=== PATIENT | female | born 1930 | race Caucasian/White ===

== ENCOUNTER 2019-03-16 13:40 | Inpatient (IN) ==
--- NOTE | 2019-03-16 15:02 | XRay Report ---
INDICATION: Fall. Chest pain. TECHNIQUE: AP chest x-ray,portable semiupright COMPARISON: Chest CT scan dated 06/06/[address] [facility] FINDINGS:Elevated right hemidiaphragm is unchanged. No focal pulmonary parenchymal infiltrate. No pulmonary contusion. There is no pneumothorax or hemopneumothorax. No detectable rib fracture. Heart size and mediastinum are negative. Clavicles and scapula are negative IMPRESSION: No acute abnormality Interpreted and Authenticated by: Mehdi Jones 03/16/19
[2019-03-16] MEDS ORDERED: HYDROmorphone 2 MG/ML VIAL IV PRN ×3 (15:12→17:09)
[2019-03-16] MEDS ORDERED: ONDANSETRON 4 MG/2 ML VIAL IV ONE ×2 (15:12→16:20)
--- NOTE | 2019-03-16 15:15 | Emergency Department Note ---
Lower Extremity Injury HPI - General Chief Complaint: Extremity Injury, Lower Stated Complaint: fall Time Seen by Provider: 03/16/19 14:20 Source: patient, EMS Mode of arrival: EMS Limitations: no limitations - History of Present Illness HPI Narrative: 88-year-old female presents with right hip pain. Onset yesterday. She was out sweeping her driveway area where there are lots of little rocks and she kind of stepped on one and fell backwards. Was having right hip pain. Was seen at [facility] up in [place]. They did a CAT scan and found she had a right hip fracture. They did contact Dr. Cobb who wanted her sent to our ER. She is having some pain right now and would like something for pain. Has not had something for several hours she believes. Her pain is constant in the right hip and radiates down the right leg. Worse with any type of movement. No prior injury to this hip. Did not hit her head. No loss of consciousness. No head, neck, or back pain. Dr. Cobb is aware that she is here and would like some preop labs done and asked to get her ready for surgery possibly tonight. - Related Data Home Medications Medication Instructions Recorded Confirmed Aspirin [Rosa Chewable Aspirin] 81 mg PO DAILY 03/16/19 03/16/19 Folic Acid 1 mg PO DAILY 03/16/19 03/16/19 Levothyroxine Sodium [Synthroid] 75 mcg PO DAILY 03/16/19 03/16/19 Losartan [Cozaar] 100 mg PO DAILY 03/16/19 03/16/19 Melatonin [Melatonin 3Mg Tablet] 1 - 2 tab PO HS 03/16/19 03/16/19 Nystatin 15 gm TP TID 03/16/19 03/16/19 Sertraline HCl [Zoloft] 50 mg PO HS 03/16/19 03/16/19 amLODIPine [Norvasc] 5 mg PO DAILY 03/16/19 03/16/19 metFORMIN [Glucophage] 500 mg PO BID 03/16/19 03/16/19 Previous Rx's Medication Instructions Recorded Aspirin [Ecotrin] 325 mg PO BID #60 tab.ec 03/17/19 Docusate Sodium [Colace] 100 mg PO BID #60 cap 03/17/19 HYDROcodone/APAP 5/325MG [[place] 1 - 2 tab PO Q4HP PRN #75 tab 03/17/19 5-325Mg] Allergies Allergy/AdvReac Type Severity Reaction Status Date / Time No Known Drug Allergies Allergy Verified 03/16/19 13:45 Review of Systems All systems ED: reviewed and negative except as stated. Past Medical History - Social History smoking status: Former smoker Physical Exam Limitations: no limitations General appearance: alert Head: atraumatic, normocephalic, normal inspection Eye: Present: normal appearance. Absent: conjunctival injection ENT: mucous membranes moist Chest: Present: symmetric chest wall rise Respiratory: Present: normal lung sounds bilaterally. Absent: respiratory distress, rales/crackles, accessory muscle use Cardiovascular: Present: regular rate, normal heart sounds Extremities: Present: normal capillary refill. Absent: normal inspection (Right hip with diffuse tenderness. No shortening or rotation. Pedal pulses strong and equal. No lower extremity edema. Sensation intact) Back: Present: normal inspection. Absent: tenderness Neurological: Present: alert, oriented X3. Absent: motor sensory deficit Psychiatric: Present: normal affect, normal mood Skin: Present: warm, dry, intact, normal color Course Vital Signs Temperature 98.7 F 03/16/19 13:42 Pulse Rate 65 03/16/19 13:42 Respiratory Rate 18 03/16/19 13:42 Blood Pressure 160/63 03/16/19 13:42 Pulse Oximetry (%) 95 03/16/19 13:42 Temperature 97.3 F 03/17/19 07:18 Pulse Rate 73 03/17/19 09:00 Respiratory Rate 16 03/17/19 07:18 Blood Pressure 128/61 03/17/19 07:18 Pulse Oximetry (%) 97 03/17/19 08:00 Extremity Injury, Lower - Lab Data Lab results reviewed: Yes I reviewed the patient's lab results. Result diagrams: 03/17/19 04:50 03/16/19 14:57 Lab Results 03/16/19 03/16/19 03/16/19 Range/Units 14:45 14:57 14:57 WBC 9.6 (4.5-11.0) K/mcL RBC 4.01 (4.00-5.20) M/mcL Hgb 11.7 L (12.0-15.0) g/dL Hct 35.7 L (36.0-48.0) % MCV 89.1 (80.0-100.0) fL MCH 29.2 (26.0-34.0) pg MCHC 32.7 (31.0-36.0) g/dL RDW 13.8 (11.5-14.5) % Plt Count 181 (140-440) K/mcL MPV 8.7 (7.4-10.4) fL Gran % 74.1 (38.0-78.0) % Lymph % (Auto) 13.8 L (15.5-49.0) % [place] % (Auto) 9.7 (1.0-12.0) % Eos % (Auto) 2.0 (0.0-7.0) % Baso % (Auto) 0.4 (0.0-2.0) % Gran # 7.1 (1.8-8.0) K/mcL Lymph # (Auto) 1.3 L (1.5-4.8) K/mcL [place] # (Auto) 0.9 (0.1-0.9) K/mcL Eos # (Auto) 0.2 (0.0-0.7) K/mcL Baso # (Auto) 0 (0.0-0.3) K/mcL PT 13.7 (11.9-14.5) sec INR 1.0 (0.9-1.1) Sodium (133-145) mmol/L Potassium (3.3-5.1) mmol/L Chloride (96-108) mmol/L Carbon Dioxide (22-30) mmol/L Anion Gap (8-16) BUN (8-23) mg/dl Creatinine (0.6-1.1) mg/dl GFR Calculation Glucose (70-105) mg/dL Calcium (8.6-10.4) mg/dl Total Bilirubin (0.0-1.0) mg/dL AST (0-37) U/l ALT (0-40) U/l Alkaline Phosphatase (39-117) U/L Total Protein (5.9-8.4) gm/dL Albumin (3.2-5.2) gm/dL Globulin (2.2-3.7) gm/dL Albumin/Globulin Ratio (1.0-2.3) Urine Color Yellow Urine Appearance Clear Urine pH 6.0 (5.0-9.0) Ur Specific [place] 1.011 (1.000-1.035) Urine Protein 30 A (NEG) mg/dL Urine Glucose (UA) Negative (NEG) mg/dL Urine Ketones Neg (NEG) mg/dL Urine Occult Blood Neg (<0.03) mg/dL Urine Nitrate Neg (NEG) Urine Bilirubin Neg (NEG) mg/dL Urine Urobilinogen Neg (NEG) mg/dL Ur Leukocyte Esterase Neg (NEG) /uL Urine RBC 2 H (0-1) /hpf Urine WBC 1 (0-4) /hpf Ur Squamous Epith Cells 0 (0-4) /hpf Urine Bacteria 0 (0) /hpf Urine Mucus Few (0) /hpf Ur Culture Indicated? No 03/16/19 Range/Units 14:57 WBC (4.5-11.0) K/mcL RBC (4.00-5.20) M/mcL Hgb (12.0-15.0) g/dL Hct (36.0-48.0) % MCV (80.0-100.0) fL MCH (26.0-34.0) pg MCHC (31.0-36.0) g/dL RDW (11.5-14.5) % Plt Count (140-440) K/mcL MPV (7.4-10.4) fL Gran % (38.0-78.0) % Lymph % (Auto) (15.5-49.0) % [place] % (Auto) (1.0-12.0) % Eos % (Auto) (0.0-7.0) % Baso % (Auto) (0.0-2.0) % Gran # (1.8-8.0) K/mcL Lymph # (Auto) (1.5-4.8) K/mcL [place] # (Auto) (0.1-0.9) K/mcL Eos # (Auto) (0.0-0.7) K/mcL Baso # (Auto) (0.0-0.3) K/mcL PT (11.9-14.5) sec INR (0.9-1.1) Sodium 137 (133-145) mmol/L Potassium 3.6 (3.3-5.1) mmol/L Chloride 101 (96-108) mmol/L Carbon Dioxide 24 (22-30) mmol/L Anion Gap 12.0 (8-16) BUN 17 (8-23) mg/dl Creatinine 0.9 (0.6-1.1) mg/dl GFR Calculation 57 Glucose 106 H (70-105) mg/dL Calcium 10.0 (8.6-10.4) mg/dl Total Bilirubin 0.4 (0.0-1.0) mg/dL AST 18 (0-37) U/l ALT 16 (0-40) U/l Alkaline Phosphatase 92 (39-117) U/L Total Protein 6.5 (5.9-8.4) gm/dL Albumin 4.0 (3.2-5.2) gm/dL Globulin 2.5 (2.2-3.7) gm/dL Albumin/Globulin Ratio 1.6 (1.0-2.3) Urine Color Urine Appearance Urine pH (5.0-9.0) Ur Specific [place] (1.000-1.035) Urine Protein (NEG) mg/dL Urine Glucose (UA) (NEG) mg/dL Urine Ketones (NEG) mg/dL Urine Occult Blood (<0.03) mg/dL Urine Nitrate (NEG) Urine Bilirubin (NEG) mg/dL Urine Urobilinogen (NEG) mg/dL Ur Leukocyte Esterase (NEG) /uL Urine RBC (0-1) /hpf Urine WBC (0-4) /hpf Ur Squamous Epith Cells (0-4) /hpf Urine Bacteria (0) /hpf Urine Mucus (0) /hpf Ur Culture Indicated? - Radiology Data Radiology results reviewed: Yes I reviewed the patient's radiology results. Disposition Pt seen by MECHATRONICS ENGINEER/PA only: Yes Clinical Impression: Closed right hip fracture Disposition: Xfer As Inpt ([facility]) Condition: Fair
[2019-03-16] MEDS: LACTATED RINGERS 1,000 ML IV SCH (15:24)
[2019-03-16 15:25] LABS: Basophils # (Auto) 0 K/mcL (0.0-0.3); Basophils % (Auto) 0.4 % (0.0-2.0); Eosinophils # (Auto) 0.2 K/mcL (0.0-0.7); Granulocytes % (Auto) 74.1 % (38.0-78.0); Hematocrit 35.7 % (36.0-48.0); Hemoglobin 11.7 g/dL (12.0-15.0); Lymphocytes # (Auto) 1.3 K/mcL (1.5-4.8); Lymphocytes % (Auto) 13.8 % (15.5-49.0); Mean Cell Volume 89.1 fL (80.0-100.0); Mean Corpuscular HGB Conc 32.7 g/dL (31.0-36.0); Mean Platelet Volume 8.7 fL (7.4-10.4); Monocytes # (Auto) 0.9 K/mcL (0.1-0.9); Monocytes % (Auto) 9.7 % (1.0-12.0); Platelet Count 181 K/mcL (140-440); RBC 4.01 M/mcL (4.00-5.20); Red Cell Distribution Width 13.8 % (11.5-14.5); WBC 9.6 K/mcL (4.5-11.0)
[2019-03-16 15:42] LABS: ALT/SGPT 16 U/l (0-40); AST/SGOT 18 U/l (0-37); Albumin/Globulin Ratio 1.6 (1.0-2.3); Alkaline Phosphatase 92 U/L (39-117); Bilirubin,Total 0.4 mg/dL (0.0-1.0); Blood Urea Nitrogen 17 mg/dl (8-23); Carbon Dioxide 24 mmol/L (22-30); Chloride 101 mmol/L (96-108); Globulin 2.5 gm/dL (2.2-3.7); Glomerular Filtration Rate 57; Glucose 106 mg/dL (70-105); Potassium 3.6 mmol/L (3.3-5.1); Sodium 137 mmol/L (133-145)
[2019-03-16 15:44] LABS: Prothrombin Time 13.7 sec (11.9-14.5)
[2019-03-16 15:46] LABS: Appearance,Urine CLEAR; Bacteria,Urine 0 /hpf (0); Bilirubin,Urine NEG (NEG); Color,Urine YELLOW; Culture Indicated,Urine NO; Glucose,Urine (UA) NEGATIVE (NEG); Ketones,Urine NEG (NEG); Leukocyte Esterase,Urine NEG /uL (NEG); Mucus,Urine FEW /hpf (0); Nitrate,Urine NEG (NEG); Protein,Urine 30 mg/dL (NEG); Specific Gravity,Urine 1.011 (1.000-1.035); Urine Blood NEG mg/dL (<0.03); Urine RBC 2 /hpf (0-1); Urine Squamous Epithelial Cell 0 /hpf (0-4); Urine WBC 1 /hpf (0-4); Urobilinogen,Urine NEG (NEG)
[2019-03-16] MEDS ORDERED: 0.9 % SODIUM CHLORIDE 9 ML, KETOROLAC 30 MG, ROPIVACAINE HCL/PF 49.5 ML, EPINEPHrine 0.... IJ ONE (15:59)
[2019-03-16] MEDS ORDERED: ceFAZolin 2 GM in DEXTROSE 5% IN WATER 50 ML IV SCH (16:00)
--- NOTE | 2019-03-16 16:09 | Consultation ---
DATE OF CONSULTATION: 03/16/2019 BRIEF HISTORY: The patient is an 88-year-old female who fell last night. She was assisted back into the house after sweeping. She was able to get back into the house and had severe pain all night. She did not have much pain relief all night. She was seen in the emergency room in [place] where she was appropriately diagnosed with a right femoral neck or lower intertrochanteric fracture. She has been quite healthy. She does have a that is assisting her. ALLERGIES: No known allergies to drugs or to environmental factors or food. No latex allergies. She does not take spironolactone anymore and Bactrim because of allergies. MEDICATIONS: 1. Folic acid 1 mg p.o. daily. 2. Cozaar 100 mg p.o. q. day. 3. Metformin 500 mg p.o. b.i.d. for type 2 diabetes. 4. Amlodipine 5 mg p.o. q. day. 5. Melatonin 3 mg p.o. at bedtime. 6. Sertraline or Zoloft 50 mg p.o. q. day. 7. Nystatin 100,000 units/mL t.i.d. 8. Aspirin 81 mg p.o. q. daily. 9. Levothyroxine 75 mcg daily. PAST MEDICAL HISTORY: She does have diabetes type 2, mild dementia, anxiety, hypertension, dyslipidemia, hypothyroidism, gout, hypercalcemia, clear-cell carcinoma of the uterus. PAST SURGERIES: Cholecystectomy in 09/23/1989, total abdominal hysterectomy and BSO. REVIEW OF SYSTEMS: Otherwise not contributory. PHYSICAL EXAMINATION: GENERAL: Very pleasant, elderly female, 88 years of age, alert and oriented x3. Mood and affect appropriate. She is well kept and groomed. VITALS: Pulse rate is 66, respiratory rate 16, blood pressure 170/67. She is in no acute distress. HEAD: Normocephalic, atraumatic. EYES: Pupils equal, round and react to light and accommodation bilaterally. Extraocular movements intact bilaterally. Sclerae are white without any blood. MOUTH: She wears dentures. No lesions. NECK: Supple, nontender. No C-spine tenderness. LUNGS: Clear to auscultation bilaterally. CARDIOVASCULAR: Regular rate and rhythm. No murmur, rubs, or gallops. ABDOMEN: Soft, nontender. MUSCULOSKELETAL: She has severe pain with any palpation of the right leg and any touching of the toes. The right leg is shortened with internal rotation. EXTREMITIES: The rotational deformity is noted. NEUROVASCULAR: On sensory exam, the patient has difficulty lifting the right leg or moving it. She can move the toes. SKIN: No open wounds, lacerations or abrasions. There is a little area of ecchymosis around the right arm where she hit the ground. PSYCH: Alert and cooperative. Normal attention span. Normal concentration. Normal affect. IMAGING: X-rays of the lumbar spine and the right hip show a right hip intertrochanteric or low neck fracture without fracture of the spine with arthritis of the left hip. IMPRESSION: Right hip fracture. PLAN: Treatment will be cemented hemiarthroplasty given the severity of the osteopenia and osteoporosis, since there is so much more deficient bone on the right leg compared to the left. The patient does smoke which contributes to this factor. She has agreed to proceed with a cemented hemiarthroplasty, understanding the risks and benefits. Benefits is to get walking sooner and get out of pain. The other is the risk of heart attack, stroke, which are always possible with these kind of big injuries. She has probably lost enough blood that we will have to monitor this well and may have to consult a hospitalist. RBH:nella Job ID: [id number] Doc ID: [id number] Scotty Antonio MD
[2019-03-16] MEDS ORDERED: MEPERIDINE 25 MG/ML SYRINGE IV PRN (16:20)
[2019-03-16] MEDS ORDERED: PROMETHAZINE 25 MG/ML VIAL IV PRN (16:20)
[2019-03-16] MEDS ORDERED: FLUMAZENIL 0.1 MG/ML ML IV PRN (16:20)
[2019-03-16] MEDS ORDERED: ONDANSETRON 4 MG/2 ML VIAL IV PRN ×2 (16:20→17:09)
[2019-03-16] MEDS ORDERED: diphenhydrAMINE 50 MG/ML VIAL IV PRN (16:20)
[2019-03-16] MEDS ORDERED: fentaNYL 100 MCG/2 ML VIAL IV PRN (16:20)
[2019-03-16] MEDS ORDERED: fentaNYL 100 MCG/2 ML VIAL IV ONE (16:20)
[2019-03-16] MEDS ORDERED: PROPOFOL 200 MG/20 ML VIAL IV ONE (16:20)
[2019-03-16] MEDS ORDERED: ePHEDrine 50 MG/ML AMPUL IV ONE (16:20)
[2019-03-16] MEDS ORDERED: ATROPINE SULFATE 0.4 MG/ML VIAL IV PRN (16:20)
[2019-03-16] MEDS ORDERED: NALOXONE HCL 0.4 MG/ML VIAL IV PRN (16:20)
[2019-03-16] MEDS ORDERED: IPRATROPIUM/ALBUTEROL 3 ML AMPUL.NEB NEB PRN (16:20)
[2019-03-16] MEDS ORDERED: DEXAMETHASONE 10 MG/ML VIAL IV ONE (16:20)
[2019-03-16] MEDS ORDERED: ePHEDrine 50 MG/ML AMPUL IV PRN (16:20)
[2019-03-16] MEDS ORDERED: ACETAMINOPHEN 1,000 MG/100 ML BOTTLE IV ONE (16:20)
[2019-03-16] MEDS ORDERED: METOPROLOL TARTRATE 5 MG/5 ML VIAL IV PRN (16:20)
[2019-03-16] MEDS ORDERED: LIDOCAINE HCL/PF 100 MG/5 ML SYRINGE IV ONE (16:20)
[2019-03-16] MEDS ORDERED: LACTATED RINGERS 1,000 ML IV SCH (16:30)
[2019-03-16] MEDS ORDERED: GENTAMICIN SULFATE 800 MG/20 ML VIAL IR ONE (16:50)
[2019-03-16] MEDS ORDERED: TRANEXAMIC ACID 1,000 MG/10 ML VIAL IV SCH (17:09)
[2019-03-16] MEDS ORDERED: BENZOCAINE/MENTHOL 1 LOZENGE PO PRN (17:09)
[2019-03-16] MEDS ORDERED: POLYETHYLENE GLYCOL 3350 17 GM PACKET PO PRN (17:09)
[2019-03-16] MEDS ORDERED: MAGNESIUM HYDROXIDE 30 ML ORAL.SUSP PO PRN (17:09)
[2019-03-16] MEDS ORDERED: BISACODYL 10 MG SUPP.RECT PR PRN (17:09)
[2019-03-16] MEDS ORDERED: FLEETS ADULT ENEMA PR PRN (17:09)
[2019-03-16] MEDS ORDERED: HYDROcodone/APAP 5/325MG TABLET PO PRN (17:09)
[2019-03-16] MEDS ORDERED: KETOROLAC 15 MG/ML VIAL IV PRN (17:09)
[2019-03-16] MEDS ORDERED: ACETAMINOPHEN 325 MG TABLET PO PRN (17:09)
--- NOTE | 2019-03-16 17:09 | Brief Operative Note ---
Date of procedure: 03/16/19 Pre-op diagnosis: right femoral neck fracture Post-op diagnosis: same Procedure: right hip cemented donny arthroplasty cemented Grafts/Implants: Yes Anesthesia: LELAND Surgeon: Scotty Antonio Barge Captain: Danie Lugo Estimated blood loss (cc): 50 Tourniquet Time (Minutes): 0 Specimens Removed/Pathology: none sent Condition: stable Disposition: PACU
--- NOTE | 2019-03-16 18:19 | XRay Report ---
CLINICAL INFORMATION: Right hip replaced TECHNIQUE: AP pelvis. AP and lateral right hip COMPARISON: Preoperative evaluation dated 03/16/2019 FINDINGS: Status post right hip arthroplasty. Anatomic alignment demonstrated. Pelvis is negative. No fracture. No lytic lesion. There is post surgical soft tissue and intra-articular gas. IMPRESSION: Right hip arthroplasty Interpreted and Authenticated by: Mehdi Jones 03/16/19
[2019-03-16] MEDS: 0.45 % SODIUM CHLORIDE 1,000 ML IV SCH (19:11)
[2019-03-16] MEDS ORDERED: SERTRALINE 25 MG TABLET PO SCH (21:00)
[2019-03-16] MEDS ORDERED: TEMAZEPAM 15 MG CAPSULE PO PRN (21:00)
[2019-03-17] MEDS: SENNOSIDES 1 TABLET PO SCH ×2 (01:26→21:10)
[2019-03-17] MEDS: DOCUSATE SODIUM 100 MG CAPSULE PO SCH ×3 (01:26→21:10)
[2019-03-17] MEDS: ASPIRIN 325 MG ENTERIC COATED TABLET PO SCH ×3 (01:26→21:10)
[2019-03-17] MEDS: ceFAZolin 1 GM VIAL IV SCH ×2 (01:27→07:29)
[2019-03-17] MEDS: metFORMIN 500 MG TABLET PO SCH ×3 (01:48→17:49)
[2019-03-17] MEDS: 0.9 % SODIUM CHLORIDE 10 ML SYRINGE IV SCH ×4 (01:49→21:13)
[2019-03-17] MEDS: 0.45 % SODIUM CHLORIDE 1,000 ML IV SCH ×3 (03:17→12:31)
--- NOTE | 2019-03-17 07:17 | Operative Note ---
DATE OF OPERATION: 03/16/2019 BRIEF HISTORY: The patient had a fall yesterday and had a fracture of the right hip intertroch/femoral neck; was unable to go the hospital that night and came in today. PREOPERATIVE DIAGNOSIS: Right femoral neck fracture. POSTOPERATIVE DIAGNOSIS: Right femoral neck fracture. PROCEDURE: Right hip cemented hemiarthroplasty using [place] components. SURGEON: Scotty Antonio MD PRESSURE STEAMER TENDER: Danie Lugo PA-C. The PA's assistance was required for the safe and efficient completion of the entire case. This provider's expertise and technical skill were required throughout the case. The PA assisted with preoperative coordination, intraoperative retraction, wound closure, dressing and splint application, as well as postoperative documentation and care coordination. ANESTHESIA: General LMA anesthesia. COMPLICATIONS: None. ESTIMATED BLOOD LOSS: About 50 mL DESCRIPTION OF PROCEDURE: The patient was brought to the operating room and put to sleep with general LMA anesthesia. Once asleep, the patient had the right hip sterilely prepped and draped in the usual sterile fashion. She was turned into a left lateral position. Once in this position, the right hip was sterilely prepped and draped in the usual sterile fashion. Once done, a superior approach was performed to the hip, identifying the fascial gluteus graciela. This was incised. Retractor was placed. We then released the capsule posterior-superiorly and dislocated the fractured superiorly. We tried to preserve some of the femoral neck fracture for healing and then we broached up to the size 5 stem with a neutral neck length. This seemed to fit very nicely. We then placed a canal restrictor, washed the canal and then cemented into place a size 5 stem in 15 degrees of anteversion with a neutral neck length and a 55 mm head. Once dry, the stem and the cement was reduced into the hip very stable. We irrigated thoroughly and then closed the capsule, closed the fascial layer with #1 Stratafix, closed the skin with #1 Stratafix and dana. The patient tolerated this well without complication. RBH:allie Job ID: [id number] Doc ID: [id number] Scotty Antonio MD
[2019-03-17] MEDS: LEVOTHYROXINE 75 MCG TABLET PO SCH (07:30)
--- NOTE | 2019-03-17 07:30 | Orthopedic Progress Note ---
Subjective Patient information: Note initiated : 03/17/19 at 7:29 am Service Date, if different from initiated Date: [] Patient: Tanisha Yin 88 y/o F admitted on 03/16/19 for fall. Chief Complaint: [Pt is stable this morning on post operative day 1 without any significant concerns or complaints. Patients vital signs have remained stable. Patients dressing is dry and is grossly intact from a neurovascular and motor standpoint. Patients 10 point ROS is otherwise negative. ] Objective Vital signs: Vital Signs Temp Pulse Pulse Resp BP BP Pulse Ox 03/17/19 07:18 97.3 F 73 16 128/61 97 03/17/19 06:00 97 03/17/19 04:38 98.8 F 71 16 137/61 97 03/16/19 23:19 70 22 94 03/16/19 22:57 97.7 F 80 16 128/60 96 03/16/19 21:57 80 131/63 94 03/16/19 21:09 96 03/16/19 20:57 79 116/58 95 03/16/19 20:27 81 127/54 96 03/16/19 19:57 85 120/61 96 03/16/19 19:42 85 132/60 96 03/16/19 19:27 86 131/61 95 03/16/19 19:12 89 136/64 95 03/16/19 18:57 87 139/66 96 03/16/19 18:43 87 138/64 95 03/16/19 18:13 97.4 F 89 16 149/72 95 03/16/19 18:10 98.9 F 88 16 155/56 96 03/16/19 18:05 88 20 168/58 96 03/16/19 18:00 98.5 F 92 H 18 92/77 95 03/16/19 17:50 98.4 F 98 H 16 155/59 100 03/16/19 17:40 97.3 F 92 H 17 150/62 99 03/16/19 17:35 94 H 17 154/58 100 03/16/19 17:30 94 H 20 160/59 100 03/16/19 17:25 98.7 F 90 12 150/56 100 03/16/19 14:00 65 19 160/62 95 03/16/19 13:48 67 14 160/63 96 03/16/19 13:42 98.7 F 65 18 160/63 95 Intake and Output 03/16/19 03/17/19 03/17/19 21:59 05:59 13:59 Intake Total 2600 1000 Output Total 1475 700 250 Balance 1125 300 -250 Intake: IV 1100 1000 Sodium Chloride 0.45% 1,000 ml 1000 @ 100 mls/hr IV .Q10H JUDE Rx#: [id number] Lactated Ringers 1,000 ml @ 20 1000 mls/hr IV .Q24H JUDE Rx#: [id number] IV - Manual Only 1500 Output: Urine Catheter Amount 1400 700 250 Estimated Blood Loss 75 Other: Urine Appearance Clear Clear Uretheral ([place]) Clear Clear Urine Color Bright Yellow Bright Yellow Uretheral ([place]) Bright Yellow Bright Yellow Urine Odor Strong Weight 149 lb 8 oz 149 lb 8 oz Intake & Output: Intake & Output 03/16/19 03/17/19 03/17/19 21:59 05:59 13:59 Intake Total 2600 1000 Output Total 1475 700 250 Balance 1125 300 -250 Weight 149 lb 8 oz 149 lb 8 oz Intake: IV 1100 1000 Sodium Chloride 0.45% 1,000 ml 1000 @ 100 mls/hr IV .Q10H JUDE Rx#: [id number] Lactated Ringers 1,000 ml @ 20 1000 mls/hr IV .Q24H JUDE Rx#: [id number] IV - Manual Only 1500 Output: Urine Catheter Amount 1400 700 250 Estimated Blood Loss 75 Other: Urine Appearance Clear Clear Uretheral ([place]) Clear Clear Urine Color Bright Yellow Bright Yellow Uretheral ([place]) Bright Yellow Bright Yellow Urine Odor Strong Incision clean and dry: Yes Dressing: Yes clean Weight bearing status: full Neurological exam IM: Yes motor sensory intact, Yes neurovascular intact Extremities exam IM: Yes Foot pink and warm, Yes neurovascular intact - Labs CBC & BMP: 03/17/19 04:50 03/16/19 14:57 Labs: Orthopedic Labs 03/16/19 14:57 PT 13.7 INR 1.0 03/17/19 03/16/19 04:50 14:57 Hgb 11.7 L Hct 30.5 L 35.7 L Assessment and Plan (1) History of hemiarthroplasty of hip The patient has been educated regarding dressing care, Physical Therapy tosin mmendations, home exercises, restrictions, and follow up appointments. The patient has had all necessary DME prescribed. The patient has remained relatively stable during their hospital course. Status: Acute
--- NOTE | 2019-03-17 07:32 | Discharge Summary ---
Ortho Discharge - [facility]ST[facility] - Patient Instructions Diet: Regular Diet Activity: activity as tolerated, weight bearing as tolerated Total Hip Protocol: Follow activity instructions as provided by Physical Therapy. Dressing Care: May shower in 2 days, Aquacel Ag - leave on for 5 days - Problem Maintenance (1) History of hemiarthroplasty of hip Status: Acute - Follow Up Plan Follow Up Appointments: Nadeen Blanco MD [Primary Care Provider] - Scotty Antonio MD [Physician] - Disposition: Home, Self-Care Prognosis: Fair Rehab Potential: Good I certify that the patient requires SNF services: No Overall status at discharge: patient is progressing back to baseline - Orders For Discharge Prescriptions: Aspirin [Ecotrin] 325 mg PO BID #60 tab.ec Docusate Sodium [Colace] 100 mg PO BID #60 cap HYDROcodone/APAP 5/325MG [[place] 5-325Mg] 1 - 2 tab PO Q4HP PRN #75 tab PRN Reason: Pain Level 3-6
[2019-03-17] MEDS: amLODIPine 5 MG TABLET PO SCH (08:52)
[2019-03-17] MEDS: LOSARTAN 50 MG TABLET PO SCH (08:52)
[2019-03-17] MEDS: FOLIC ACID 1 MG TABLET PO SCH (08:52)
[2019-03-17] MEDS: LACTATED RINGERS 1,000 ML IV SCH (15:36)
[2019-03-17] MEDS ORDERED: SERTRALINE 50 MG TABLET PO SCH (21:00)
[2019-03-18] MEDS: 0.9 % SODIUM CHLORIDE 10 ML SYRINGE IV SCH (06:26)
[2019-03-18] MEDS: DOCUSATE SODIUM 100 MG CAPSULE PO SCH (08:08)
[2019-03-18] MEDS: FOLIC ACID 1 MG TABLET PO SCH (08:10)
[2019-03-18] MEDS: amLODIPine 5 MG TABLET PO SCH (08:10)
[2019-03-18] MEDS: metFORMIN 500 MG TABLET PO SCH (08:10)
[2019-03-18] MEDS: LEVOTHYROXINE 75 MCG TABLET PO SCH (08:10)
[2019-03-18] MEDS: ASPIRIN 325 MG ENTERIC COATED TABLET PO SCH (08:10)
[2019-03-18] MEDS: LOSARTAN 50 MG TABLET PO SCH (08:10)
== END 2019-03-18 12:00 | disposition home or self-care (01) | DRG 470 ==
LOC: ED 13:40 → SUR 15:44 → ED 15:45 → MEDSUR 18:12
PROVIDERS: ADMIT Orthopaedic Surgery; ATTEND Orthopaedic Surgery
PROC: HEMIHIP (2019-03-16 16:15)